=== PATIENT | female | born 1960 | race Caucasian/White ===

== ENCOUNTER 2018-01-17 09:00 | Emergency (ER) | payer BC ==
[2018-01-17 09:17] VITALS: BP 150/85
--- NOTE | 2018-01-17 10:13 | RAD ---
INDICATION: Left foot injury. TECHNIQUE: 3 views of the left foot were obtained. FINDINGS: There is diffuse soft tissue swelling which is most prominent over the dorsal medial aspect of the foot. There is lateral subluxation of the proximal first metatarsal relative to the medial cuneiform bone. There is lateral subluxation of the second through fifth metatarsal bones relative to the tarsal bones and a fracture through the medial base of the second metatarsal bone. There is widening of the space between the first and second metatarsal bones consistent with a complex Lisfranc fracture dislocation. There also appears to be a fracture of the distal portion of the cuboid bone. IMPRESSION: 1. COMPLEX LISFRANC FRACTURE DISLOCATION DESCRIBED. RECOMMEND ORTHOPEDIC CONSULTATION AND OUTPATIENT CT IMAGING OF THE LEFT FOOT FOR FURTHER EVALUATION. 2. FRACTURE OF THE CUBOID BONE.
[2018-01-17] MEDS ORDERED: HYDROcodone/ACETAMIN 5-325 MG* 1 TAB PO ONE (10:50)
--- NOTE | 2018-01-17 11:57 | UC ---
Bal Ojeda Gabriel, scribed for Marguerite Cano DO on 01/17/18 at 1047 . Lower Extremity/Ankle HPI - HPI Summary HPI Summary: This patient is a 57 year old F presenting to [facility] accompanied by her s /p mechanical fall that occurred yesterday. Pt was going up her stairs with groceries in her hands and fell. The patient rates the pain 7/10 in severity. Patient reports LLE pain and unable to bear weight. - History of Current Complaint Chief Complaint: UCLowerExtremity Stated Complaint: FOOT INJURY Time Seen by Provider: 01/17/18 09:29 Hx Obtained From: Patient Hx Last Menstrual Period: NA Onset/Duration: Still Present Severity Initially: Moderate Severity Currently: Moderate Pain Intensity: 7 Pain Scale Used: 0-10 Numeric Aggravating Factor(s): Standing, Ambulation Able to Bear Weight: No - Allergies/Home Medications Allergies/Adverse Reactions: Allergies Allergy/AdvReac Type Severity Reaction Status Date / Time naproxen Allergy Hives Verified 01/17/18 09:35 PMH/Surg Hx/FS Hx/Imm Hx Cardiovascular History: Hypertension Other History Of: Negative For: HIV, Hepatitis B - Surgical History Surgical History: Yes Surgery Procedure, Year, and Place: D&C - Family History Known Family History: Negative: Hypertension, Renal Disease, Respiratory Disease - Social History Occupation: Employed Full-time Lives: With Family Alcohol Use: Daily Substance Use Type: Marijuana Smoking Status (MU): Former Smoker When Did the Patient Quit Smoking/Using Tobacco: 15 yrs Review of Systems Constitutional: Negative - fever, Other - fall Musculoskeletal: Other: - LLE pain All Other Systems Reviewed And Are Negative: Yes Physical Exam Triage Information Reviewed: Yes Vital Signs: Initial Vital Signs Temp 98.9 F 01/17/18 09:08 Pulse 85 01/17/18 09:08 Resp 18 01/17/18 09:08 BP 150/85 01/17/18 09:08 Pulse Ox 99 01/17/18 09:08 Vital Signs Reviewed: Yes Cardiovascular: Positive: RRR, No Murmur, Pulses Normal, Brisk Capillary Refill Musculoskeletal: Positive: Edema @ - left foot, Other: Neurological: Positive: Alert, Muscle Tone Normal Psychological: Positive: Age Appropriate Behavior - Additional Comments Appearance: Well-Appearing, No Pain Distress, Well-Nourished Eyes: conjunctiva clear, no discharge ENT: Hearing grossly normal, no muffled/hoarse voice. Hearing grossly normal, normal voice). Neck: Normal, Supple Respiratory/Lung Sounds: Lungs clear, Normal breath sounds, No respiratory distress, No accessory muscle use Cardiovascular: RRR, No murmur Abdomen (if she checks): Nontender, Soft, no guarding, not distended Bowel Sounds (if she checks): Present Musculoskeletal: TTP at navicular, first metatarsal and cuneiform. Neurological: Alert, muscle tone normal Psychiatric:Normal, age appropriate behavior Skin: Normal, Warm, Dry, Normal color Procedures - Splinting Location: LLE Hand-Made Type: orthoglass Splint: sugar-tong Pre-Proc Neuro Vasc Exam: normal Post-Proc Neuro Vasc Exam: normal Diagnostics - Radiology foot Xray Radiology Interpretation Completed By: Radiologist - 1. COMPLEX LISFRANC FRACTURE DISLOCATION DESCRIBED. RECOMMEND ORTHOPEDIC CONSULTATION AND OUTPATIENT CT IMAGING OF THE LEFT FOOT FOR FURTHER EVALUATION. 2. FRACTURE OF THE CUBOID BONE. Dr. Cano has reviewed and agrees with this report. Lower Extremity Course/Dx - Differential Dx/Diagnosis Provider Diagnoses: jordin rose fracture/dislocation - Physician Notifications Discussed Patient Care With: Rubén Hill Time Discussed With Above Provider: 10:38 Instructed by Provider To: Other - He recommends a splint that comes under the foot to mid-calf with a sugar tongue and to follow up with Dr. Caraballo or Kenzie Discharge - Discharge Plan Condition: Stable Disposition: HOME Prescriptions: HYDROcodone/ACETAMIN 5-325 MG* [[place] 5-325 TAB*] 1 tab PO Q6H PRN #14 tab MDD 4 TABS PRN Reason: Pain Patient Education Materials: Foot Fracture in Adults (ED), Splint Care (ED) Forms: *Work Release Referrals: Dali Beaulieu NP [Primary Care Provider] - If Needed Neri Caraballo MD [Medical Doctor] - (FOLLOW UP IN 1-3 DAYS) Additional Instructions: ORAL NARCOTIC MEDICATION: You have been given a prescription for pain control. This medication is a narcotic. It's best taken with food, as nausea can result if taken on an empty stomach. Don't operate machinery or drive within six hours of taking this medication. Do not combine this medicine with alcohol, or with any medication which can cause sedation (such as cold tablets or sleeping pills) unless you get permission from the physician. Narcotics tend to cause constipation. If possible, drink plenty of fluids and eat a diet high in fiber and fruits. This injury will probably continue to get swollen and bruised, Keep it elevated as much as possible. This injury will likely require surgery. The documentation as recorded by the Bal suarez Gabriel accurately reflects the service I personally performed and the decisions made by me, Marguerite Cano DO.
== END 2018-01-17 11:45 | disposition home or self-care (01) ==
LOC: UCEAST 09:00
DX: S92.212A Displaced fracture of cuboid bone of left foot, initial encounter for closed fracture (principal); W10.9XXA Fall (on) (from) unspecified stairs and steps, initial encounter; Y92.9 Unspecified place or not applicable; I10 Essential (primary) hypertension; Z87.891 Personal history of nicotine dependence
CPT/HCPCS: 99212; G0463

== ENCOUNTER 2018-01-21 11:12 | Day surgery (SDC) | payer BC ==
[~2018-01-21 11:12] MED LIST: Buffered Lidocaine 0.9% SYRIN* 5 ML/SYR SYRINGE INTRADERM ONE; Dexamethasone IV* 4 MG/ML 1 ML (4 MG) IV SLOW PU ONE; Famotidine IV* 10 MG/ML 2 ML (20 mg) IV ONE
[2018-01-21] MEDS ORDERED: Famotidine IV* 10 MG/ML 2 ML (20 mg) ONE (11:29)
[2018-01-21] MEDS ORDERED: Dexamethasone IV* 4 MG/ML 1 ML (4 MG) ONE (11:29)
[2018-01-21] MEDS ORDERED: ceFAZolin 1 GM in Dextrose (*) 2 GM/100 ML BAG IVPB ONE (11:29)
[2018-01-21] MEDS ORDERED: fentaNYL* 50 MCG/ML 2 ML VIAL (100 MCG VIAL) ONE (12:02)
[2018-01-21] MEDS ORDERED: Midazolam* 1 MG/ML 2 ML VIAL (2 MG) ONE (12:02)
[2018-01-21] MEDS ORDERED: fentaNYL* 50 MCG/ML 2 ML VIAL (100 MCG VIAL) IV PRN (13:43)
[2018-01-21] MEDS ORDERED: DiMENhydriNATE IV* 50 MG/ML VIAL IV PUSH PRN (13:43)
[2018-01-21] MEDS ORDERED: HYDROmorphone INJ* 1 MG/ML CARPUJECT SYRINGE IV PRN (13:43)
[2018-01-21] MEDS ORDERED: Naloxone* 0.4 MG/ML 1 ML VIAL IV PRN (13:43)
[2018-01-21] MEDS ORDERED: Bupivacaine 0.25% SDV* 30 ML ONE (14:12)
[2018-01-21 15:31] VITALS: BP 148/84
--- NOTE | 2018-01-21 17:50 | OP ---
Operative Report - Blank - Operative Report Date of Operation: 01/21/18 Note: PATIENT: Helena Givens DATE OF : 56 DATE OF SURGERY: 01/21/18 SURGEON: Edouard Espino MD TRAIN ANNOUNCER: LUIS ANGEL Cantor, whos assistance was necessary for positioning, retraction, help with instrumentation, and closure. ANESTHESIOLOGIST: Dr. Rose PREOPERATIVE DIAGNOSIS: Left Lisfranc injury with first and second TMT joint dislocations, second metatarsal base fracture, medial cuneiform fracture. POSTOPERATIVE DIAGNOSIS: Left Lisfranc injury with first and second TMT joint dislocations, second metatarsal base fracture, medial cuneiform fracture. OPERATION: 1. Open reduction and internal fixation of left first TMT joint 2. Open reduction and internal fixation of left second TMT joint 3. Open reduction and internal fixation of left second metatarsal base fracture. ANESTHESIA: GETA with popliteal nerve block IMPLANTS: Arthrex midfoot 3.0mm plate and screws. Arthrex 4.0mm cannulated screw. TOURNIQUET TIME: Less than 2 hours with a well-padded calf tourniquet at 225 mmHg SPECIMENS: none ESTIMATED BLOOD LOSS: minimal COMPLICATIONS: none STATUS: Stable from the operating room to the recovery room and then home. INDICATIONS FOR PROCEDURE: Helena sustained the above injury when she fell on the stairs. Both operative and non operative treatment alternatives were reviewed. Further, the nature and risks of surgery were reviewed in careful detail, in the office as well as the pre-operative holding area. Our discussions regarding the risks of surgery included, but were not limited to, infection, wound problems, nerve injury, neuroma, RSD, persistent symptoms, blood clot, nonunion, malunion, hardware failure, failure of the surgery, and even the remote chance of catastrophic complication, including loss of limb. DESCRIPTION OF PROCEDURE: The patient was seen in the preoperative holding unit and informed written consent was obtained. The appropriate extremity was marked. The patient was then brought to the operating room and carefully positioned on the operating room table. Anesthesia was induced. All bony prominences were padded with great care. A chlorhexidine based pre-scrub was performed followed by a chloraprep prep and drape in standard sterile fashion. A surgical safety pause was then conducted in which we confirmed the appropriate patient, extremity, planned procedure, availability of equipment, indication and administration of prophylactic antibiotics, and DVT prophylaxis in the form of a compression boot on the non-surgical extremity. A well-padded calf tourniquet was placed sterilely 3 finger breaths distal to the fibular neck. We performed an Esmarch exsanguination of the limb and inflated the tourniquet to 225 mmHg. I utilized fluoroscopy to samina out my incision. An approximately 6 cm incision was made between the first and second metatarsals proximally in line with the Lisfranc joint. Careful blunt dissection was utilized to dissect between the EHL and EDL tendons. The neurovascular bundle was visualized and carefully retracted laterally to reveal the periosteal layer. There was obvious disruptions of the first and second TMT joints. There were fractures at the base of the second metatarsal and at the medial cuneiform. I manually reduced the first TMT joint and placed a K wire to provisionally hold the joint reduced. I then placed a 3.0 mm Arthrex plate across the first TMT joint and confirmed it's position fluoroscopically. I then placed four 3.0 mm screws into the first metatarsal and medial cuneiform. The provisional K wire fixation was removed. The placement of the hardware was confirmed fluoroscopically. The plate and screws held the joint well reduced. I then turned my attention to the second TMT joint. I manually reduced to this as well as the second metatarsal base fracture. I placed a Raymundo pointed reduction clamp to hold the second TMT joint and second metatarsal base fracture reduced. Under fluoroscopic guidance, a guidewire was placed from the medial cuneiform into the base of the second metatarsal. This was overdrilled and a 4.0 mm cannulated screw was placed. The screw had phenomenal purchase. The Raymundo clamp was removed. The screw held the second TMT joint, Lisfranc joint , and second metatarsal base fracture well reduced both under direct visualization, as well as fluoroscopically. At this point, I explored the intercuneiform joint, which was intact. I then utilized fluoroscopy to assess the third, fourth and fifth TMT joints, which were well aligned. Final fluoroscopic images were then obtained. We irrigated and then closed in layers utilizing 3-0 Monocryl and 3-0 nylon suture. A sterile dressing was then applied followed by a splint with the ankle in neutral position. The patient was then awakened from anesthesia and transferred to the recovery room in stable condition. There were no complications. All needle and sponge counts were correct at the end of the case. ATTESTATION: I attest I was present and scrubbed and performed the critical portions of the procedure myself. POSTOPERATIVE PLAN: The patient will remain [id number] for an anticipated duration of 8 weeks. From month 2-3 she will begin weightbearing in a boot. From month 3-4 she will be in regular shoes. We will plan on removing the hardware at 4 months. Follow up will be in two weeks for likely suture removal and Steri-Strip application.
--- NOTE | 2018-01-22 07:30 | RAD ---
INDICATION: Left foot Lisfranc dislocation operative reduction and internal fixation. COMPARISON: Comparison is made with a prior x-ray study of the left foot from January 17, 2018. TECHNIQUE: 109 seconds of intermittent fluoroscopic guidance were provided and 8 spot films of the left foot were obtained in the operating room. FINDINGS: The films demonstrate a metallic plate transfixed with multiple screws present along the dorsal aspect of the medial cuneiform and base of the first metatarsal and a screw spanning the medial cuneiform and base of the second metatarsal. The bones appear improved in alignment and positioning. IMPRESSION: INTRAOPERATIVE CONTROL FILMS. CPT II Codes: 6045F
== END 2018-01-21 15:52 | disposition home or self-care (01) ==
LOC: OR 11:12
PROVIDERS: ATTEND Orthopaedic Surgery
DX: S92.322A Displaced fracture of second metatarsal bone, left foot, initial encounter for closed fracture (principal); S93.325A Dislocation of tarsometatarsal joint of left foot, initial encounter; W18.49XA Other slipping, tripping and stumbling without falling, initial encounter; Y92.9 Unspecified place or not applicable; G89.18 Other acute postprocedural pain; Z87.891 Personal history of nicotine dependence; I10 Essential (primary) hypertension; K21.9 Gastro-esophageal reflux disease without esophagitis
CPT/HCPCS: 76001; C1713; C1776; J0690; J1100; J2250; J3010

== ENCOUNTER 2018-05-27 07:23 | Day surgery (SDC) | payer BC ==
[~2018-05-27 07:23] MED LIST changes: -Dexamethasone IV* 4 MG/ML 1 ML (4 MG) IV SLOW PU ONE
[2018-05-27] MEDS ORDERED: Buffered Lidocaine 0.9% SYRIN* 5 ML/SYR SYRINGE ONE (07:47)
[2018-05-27] MEDS ORDERED: Famotidine IV* 10 MG/ML 2 ML (20 mg) ONE (07:47)
[2018-05-27] MEDS ORDERED: ceFAZolin 2 GM PREMIX (*) 2 GM/50 ML BAG IVPB ONE (07:48)
[2018-05-27] MEDS ORDERED: Dexamethasone IV* 4 MG/ML 1 ML (4 MG) ONE (08:08)
[2018-05-27] MEDS ORDERED: fentaNYL* 50 MCG/ML 2 ML VIAL (100 MCG VIAL) ONE (08:08)
[2018-05-27] MEDS ORDERED: Ketorolac INJ* 30 MG/ML 1 ML VIAL ONE (08:08)
[2018-05-27] MEDS ORDERED: Lidocaine 2% PF * 5 ML VIAL ONE (08:08)
[2018-05-27] MEDS ORDERED: Propofol* 10 MG/ML 20 ML BTL IV PUSH ONE ×2 (08:08→09:19)
[2018-05-27] MEDS ORDERED: Ondansetron ODT TAB* 4 MG ONE (08:08)
[2018-05-27] MEDS ORDERED: KETAMINE HCL* 50 MG/ML 10 ML VIAL ONE (08:08)
[2018-05-27] MEDS ORDERED: Midazolam* 1 MG/ML 10 ML VIAL (10 MG) ONE (08:08)
[2018-05-27 08:25] VITALS: BP 153/96
[2018-05-27] MEDS ORDERED: fentaNYL* 50 MCG/ML 2 ML VIAL (100 MCG VIAL) IV PRN (08:55)
[2018-05-27] MEDS ORDERED: Ondansetron ODT TAB* 4 MG PO PRN (08:55)
[2018-05-27] MEDS ORDERED: DiMENhydriNATE IV* 50 MG/ML VIAL IV PUSH PRN (08:55)
[2018-05-27] MEDS ORDERED: Naloxone* 0.4 MG/ML 1 ML VIAL IV PRN (08:55)
[2018-05-27] MEDS ORDERED: oxyCODONE/Acetamin 5/325 MG* TAB PO PRN (08:55)
[2018-05-27] MEDS ORDERED: Bupivacaine 0.5% SDV PF* 30ML VIAL ONE (08:59)
--- NOTE | 2018-05-27 09:59 | OP ---
Operative Report - Blank - Operative Report Date of Operation: 05/27/18 Note: PATIENT: Helena Lo DATE OF : 1960 DATE OF SURGERY: 05/27/2018 SURGEON: Edouard Espino MD ROTO ROOTER OPERATOR: LUIS ANGEL Cantor, whos assistance was necessary for positioning, retraction, help with instrumentation, and closure. ANESTHESIOLOGIST: Dr. Barlow PREOPERATIVE DIAGNOSIS: Left foot painful retained hardware POSTOPERATIVE DIAGNOSIS: Left foot painful retained hardware OPERATION: 1. Left foot, removal of implants, deep. 2. Stress fluoroscopy performed by surgeon under anesthesia. ANESTHESIA: MAC IMPLANTS: none TOURNIQUET TIME: Less than 1 hour with an ankle Esmarch tourniquet SPECIMENS: none ESTIMATED BLOOD LOSS: minimal COMPLICATIONS: none STATUS: Stable from the operating room to the recovery room and then home. INDICATIONS FOR PROCEDURE: Helena had a Lisfranc injury and has painful retained. Both operative and non operative treatment alternatives were reviewed. Further, the nature and risks of surgery were reviewed in careful detail, in the office as well as the pre- operative holding area. Our discussions regarding the risks of surgery included , but were not limited to, infection, wound problems, nerve injury, neuroma, RSD , persistent symptoms, blood clot, need for further surgery, post-traumatic arthritis, failure of the surgery, and even the remote chance of catastrophic complication, including loss of limb. DESCRIPTION OF PROCEDURE: The patient was seen in the preoperative holding unit and informed written consent was obtained. The appropriate extremity was marked. The patient was then brought to the operating room and carefully positioned on the operating room table. Anesthesia was induced. All bony prominences were padded with great care. A chlorhexidine based pre-scrub was performed followed by a chloraprep prep and drape in standard sterile fashion. A surgical safety pause was then conducted in which we confirmed the appropriate patient, extremity, planned procedure, availability of equipment, indication and administration of prophylactic antibiotics, and DVT prophylaxis in the form of a compression boot on the non-surgical extremity. We began by placing an ankle Esmarch tourniquet. I utilized the prior dorsal foot incision to access the medial column hardware. I used blunt dissection to expose the hardware and took great care not to disturb the neurovascular bundle. The hardware was exposed and a screw delivery driver was used to remove the screws. A freer was used to loosen the plate which was then removed. A rongeur was used to smooth out the bone. I then turned my attention to the percutaneous screw. I utilized a small K wire to cannulate the cannulated screw. I dissected down to expose the hardware. We removed the screw utilizing a screwdriver without difficulty. I then performed an external rotation and abduction stress fluoroscopic examination. It looks like the second metatarsal base fracture did not fully bridge with bone. However, no instability was appreciated through the fracture site, so there is likely enough fibrous tissue there holding it together. Also , no instability was appreciated at the Lisfranc articulation. A fluoroscopic image was obtained demonstrating removal of hardware. At this point, we irrigated copiously and then closed in layers meticulously utilizing 3-0 Monocryl and 3-0 nylon for the skin. A sterile dressing was then applied. The patient was then awakened from anesthesia and transferred to the recovery room in stable condition. There were no complications. All needle and sponge counts were correct at the end of the case. ATTESTATION: I attest I was present and scrubbed and performed the critical portions of the procedure myself. POSTOPERATIVE PLAN: The plan is to remove the sutures in 2 weeks.
--- NOTE | 2018-05-28 06:25 | RAD ---
CPT II Codes: G9500 INDICATION: Left foot hardware removal TECHNIQUE: Intraoperative fluoroscopy was provided during removal of left foot hardware. FINDINGS: 5 spot films depict multiple images of the mid foot. No metallic hardware is visualized.. Fluoroscopy time: 67.5 seconds IMPRESSION: As above.
== END 2018-05-27 10:48 | disposition home or self-care (01) ==
LOC: OR 07:23
PROVIDERS: ATTEND Orthopaedic Surgery
DX: T84.84XA Pain due to internal orthopedic prosthetic devices, implants and grafts, initial encounter (principal); Y83.1 Surgical operation with implant of artificial internal device as the cause of abnormal reaction of the patient, or of later complication, without mention of misadventure at the time of the procedure; S92.302S Fracture of unspecified metatarsal bone(s), left foot, sequela; I10 Essential (primary) hypertension; Z87.891 Personal history of nicotine dependence; M19.90 Unspecified osteoarthritis, unspecified site; F32.9 Major depressive disorder, single episode, unspecified; E78.00 Pure hypercholesterolemia, unspecified; K21.9 Gastro-esophageal reflux disease without esophagitis
CPT/HCPCS: 76001; 88300; A9270-GY; J0690; J1100; J1885; J2250; J2704; J3010